=== PATIENT | female | born 1980 | race African-American/Black ===

== ENCOUNTER 2018-10-15 15:30 | Inpatient (IN) | payer OTHER ==
[~2018-10-15] VITALS: Ht 177.8 cm; Wt 78.7 kg
[2018-10-15] VITALS (22 sets, daily range): BP systolic 90–164; BP diastolic 51–123
--- NOTE | ~2018-10-15 | HC ---
[facility] [place] [address] CONSULTATION Name: DEBBIE DE LEON Room #: 244-P ADM IN M.R.#: [id number] Admission: 10/15/18 ������������������ Attend Phys: Otoniel Pate MD Discharge: ������������������ Date of : 80 Report #: [id number] THIS REPORT FOR: //name// CC: Otoniel OSORIO [facility] DATE OF SERVICE: 10/16/2018 REASON FOR CONSULTATION: Oliguria and acute kidney injury. HISTORY OF PRESENT ILLNESS: This is a 38-year-old female who presented yesterday to the Emergency Room with cardiorespiratory arrest. She is in the ICU, on the ventilator, paralyzed and sedated pharmacologically. The history is obtained through the nursing staff as well as the records available in the computer. Apparently, she presented elsewhere yesterday and was noted to be complaining of having an asthma attack. EMS was called and she had a cardiorespiratory arrest. She underwent resuscitation. She was brought to the Emergency Room, where resuscitation was continued. She was admitted to the Intensive Care Unit about 27 hours ago. Since that time, she has remained on the ventilator with very difficult ventilatory parameters. She has continued to have severe respiratory acidosis with hypercapnia. She was running high airway pressures. I would note, she does have a history of asthma. She has also been hypoxemic at times. Upon original presentation through the Emergency Room, she was hypotensive with pressures showing as low as 70/30. She was resuscitated and put on pressors and ended up hypertensive with several pressures recorded in the 170/120 range. Those were backed off. She got some IV fluids. Upon admission to the ICU, she was started on pharmacologic paralysis with cisatracurium. She has also been on some propofol. She has been given steroids, broad-spectrum antibiotics including aztreonam, levofloxacin and vancomycin. She has been on some IV fluids, part of which includes some half normal saline with 50 mEq of sodium bicarbonate. We were consulted as her urine output was low. Her intake and output was recorded as about 4.2 liters in and 725 mL out during the first 12 hours of hospitalization. In talking with the nurse, she has had another 700 some mL out today, so she was never frankly oliguric. Several hours ago, she was given 60 mg of furosemide IV. She has put nearly a liter out since that time. Labs will all be reviewed below. Additionally, she was started on hypothermia protocol, but respiratory parameters worsened, so that was stopped. She has been started on anti-seizure medication. Neurologically, she is still triggering the vent, but has been kept sedated and pharmacologically paralyzed, so we are unaware of other extent of neurologic injury. PAST MEDICAL HISTORY: Known for asthma. I do not have much else on that. There has been some drug uses. Apparently, she was positive for both cocaine and methamphetamine on arrival. No other medications are listed. Unknown if [address] [address] CONSULTATION Name: DEBBIE DE LEON Room #: 244-P ADM IN M.R.#: [id number] Admission: 10/15/18 ������������������ Attend Phys: Otoniel Pate MD Discharge: ������������������ Date of : 80 Report #: [id number] she has had any chronic illnesses otherwise. FAMILY HISTORY: Unavailable. SOCIAL HISTORY: The patient is single, lives in [place], [place]. REVIEW OF SYSTEMS: Unavailable. PHYSICAL EXAMINATION: GENERAL: A 38-year-old female seen in the Intensive Care Unit. She is sedated. She is on the ventilator. Pupils appear to be about 3 mm at this time. Sclerae nonicteric. She is orally intubated. NECK: Shows no JVD. Neck is supple. CHEST: Shows some rhonchi, particularly anteriorly and posteriorly. Her chest and breath sounds are very coarse with poor air movement. HEART: Has a regular tachycardia. No gallop. ABDOMEN: Has absent bowel sounds. Abdomen is soft, nondistended. I am unable to palpate organomegaly or masses. EXTREMITIES: Show no peripheral edema. All four extremities are cool to the touch. I cannot palpate peripheral pulses at this time. IMAGING: I reviewed her original chest x-ray which is fairly clear. Today's chest x-ray was much more dense. I reviewed her CT scan done of the chest, which shows extensive atelectasis and some evidence of posterior effusion. There is a brief view of her kidneys on that CT of the chest, which showed no hydronephrosis. Echocardiogram was done today, which apparently showed a 25% ejection fraction. LABORATORY DATA: From original presentation, sodium 145, potassium 4.9, chloride 106, bicarb 18, BUN 17, creatinine 1.6, glucose 433, AST is 447, ALT is 496, alkaline phosphatase 204, calcium 8.9, phosphorus 8.5, magnesium 3.5, total protein 5.7, albumin 2.3. A CK-MB was drawn, which was 6.1, no total CPKs has been drawn. Presenting white count 7.7; hemoglobin 10.5; hematocrit 36.2; platelets 145,000. Urinalysis, specific gravity greater than 1.030, pH 6.0, 3+ protein, 2+ glucose, 3+ blood, 16-25 white cells, 3-10 red cells, some bacteria, some hyaline casts. Original presentation of blood gas was pH 6.72, pCO2 of 98.6, pO2 of 445. Since that time, she has continued to be very acidotic. Most recent blood gas showed the most improvement with a pH of 7.134, pCO2 of 51.6 and pO2 of 73.6. Also, by this afternoon, on her serum chemistry, sodium 143, potassium 4.6, chloride 110, bicarbonate 19, BUN 37, creatinine 2.0, glucose down to 130, calcium 6.1, phosphorus has not been repeated nor have her liver function tests. ASSESSMENT: 1. The patient is now approximately 28-29 hours post-cardiorespiratory arrest. [facility] [address] [place] [address] CONSULTATION Name: DEBBIE DE LEON Room #: 244-P [facility] IN .R.#: [id number] Admission: 10/15/18 ������������������ Attend Phys: Otoniel Pate MD Discharge: ������������������ Date of : 80 Report #: [id number] History would suggest this started as a severe asthma episode. She presented with severe respiratory acidosis, hypercapnia and status asthmaticus. She was resuscitated in the Emergency Room. She was hypotensive, then hypertensive. She has been taken off the pressors. She has been given quite a bit of volume. She has held her blood pressure better today. She has changes on her echo suggesting acute cardiac dysfunction with a low ejection fraction. Neurologically, we are unable to determine her status because of her psychopharmacologic intervention, which was necessary for ventilation. 2. Severe respiratory failure with marked respiratory acidosis. Being managed by Pulmonary. She has trended somewhat better, although she still has significant hypercapnia and respiratory acidosis. 3. Acute kidney injury. Although she was never oliguric frankly, she did improve urine output with some furosemide. Creatinine level nancy. I am uncertain whether her creatinine was 1.5 on original presentation. I am uncertain if she has actually had some muscle injury causing an elevated creatinine production or if she has some underlying chronic kidney disease. There was no history available to suggest that. Nevertheless, her creatinine level has gone up. Her admitting phosphorus was exceedingly high, which could have been acute shift related to her arrest and her acidosis, but it makes me concerned about potential for additional muscle injury. We will check a CPK. Nevertheless, her urine output is improving at this time. We will continue to follow along with that. Potassium has held okay. We need to recheck the phosphorus again. She is on a bit of bicarbonate infusion and her metabolic acidosis parameters are actually improving with decreasing anion gap. 4. Severe combined respiratory and metabolic acidosis noted above. 5. Continues on broad-spectrum antibiotics. 6. She will be evaluated going forward for additional evidence of hypoxic brain injury. 7. We need to recheck liver enzymes as she is certainly is set to have shock liver on top of everything else. PLAN: 1. Continue hemodynamic support. 2. Pulmonary will continue to manage her respiratory status and work towards improvement in her hypercapnia and respiratory acidosis. 3. Continue IV fluids. She is currently on about a total of 200 some mL an hour and a urine output now looks like it is adequate. She can get p.r.n. furosemide. 4. Recheck phosphorus and CPK. 5. Recheck hepatic enzymes in the morning. 6. We will follow along closely in the care of this critically ill patient. ��������������������������������������������� ���������������������������������������� By: ��������������������������������������������� 22 1017 Franck Burgos MD /nt
--- NOTE | ~2018-10-15 | EEG ---
[facility] [address] [place] [address] ELECTROENCEPHALOGRAM Name: DEBBIE DE LEON Room #: 244-P ADM IN M.R.#: [id number] ������������������ Admission: 10/15/18 ������������������ Attend Phys: Otoniel Pate MD Discharge: ������������������ Date of : 80 Report #: [id number] ����������������������������������������������������������������� [id number] THIS REPORT FOR: //name// CC: Otoniel Pate NO PCP DATE OF SERVICE: 10/17/2018 This patient is post-code. EEG was done by placing the electrodes by standard 10-20 system of electrode placement. Both referential and sequential montages were used for recording. The recording was started at 7 microvolts and in that sensitivity, there is no cortical activity noticed. At the sensitivity of 5, no cortical activity appeared to be present, but there is some artifact and therefore, cortical activity cannot be fully excluded. Photic stimulation was unremarkable. IMPRESSION: This is a severely abnormal electroencephalogram consistent with hypoxic encephalopathy. There is no cortical activity present at the usual sensitivity of 7 microvolts; however, at 2 microvolts, background artifact is present and it becomes very difficult to fully exclude very low voltage activity, although it looks artifact. If brain is being considered in this patient, this patient will need either strong clinical correlation or evaluation with imaging study like brain flow study because artifact at 2 microvolts prevented confirming the finding on the basis of this electroencephalogram. ���������������������������������������� ���������������������������������������� By: ��������������������������������������������� 1827 1844 Aren Lima MD /nt
--- NOTE | 2018-10-15 15:34 | NUR ---
SEE CODE SHEET.
--- NOTE | 2018-10-15 15:38 | NUR ---
EMS REPORTS 7.0 ET 21 AT THE TEETH. 500 R 16 100% 5 PEEP
--- NOTE | 2018-10-15 15:41 | NUR ---
GLUCOSE 387
[2018-10-15 16:16] LABS: BE(vivo) -24.4 mmol/L (-2 to +3); HCO3 11.7 mmol/L (22.0-26.0); PCO2 92.6 mmHg (35.0-45.0); PO2 441.5 mmHg (80.0-100.0); sO2 99.5 % (92.0-98.0)
[2018-10-15 16:17] LABS: HEMATOCRIT 36.2 % (37.0-47.0); HEMOGLOBIN 10.5 gm/dL (12.0-15.0); MCH 22.4 pg (26.0-34.0); PLATELET COUNT 145 thou/uL (150-400); RBC 4.71 mil/uL (4.20-5.00); RDW 16.6 % (10.5-14.5); WBC 7.7 thou/uL (4.0-11.0)
[2018-10-15 16:25] LABS: ANION GAP 21 mmol/L (7-16); BUN 17 mg/dL (7-18); CALCIUM 8.9 mg/dL (8.5-10.1); CHLORIDE 106 mmol/L (98-107); CO2 18 mmol/L (21-32); CREATININE 1.6 mg/dL (0.6-1.0); GLUCOSE 433 mg/dL (74-106); POTASSIUM 4.9 mmol/L (3.5-5.1); SODIUM 145 mmol/L (136-145)
[2018-10-15 16:34] LABS: TROPONIN-I <0.06 ng/mL (<0.06)
[2018-10-15 16:46] LABS: ABSOLUTE NEUTROPHILS 1.3 thou/uL (1.4-8.2)
[2018-10-15 16:47] LABS: ANISOCYTOSIS 1+; HYPOCHROMASIA SLIGHT; MICROCYTES 1+; POLYCHROMASIA OCCASIONAL
--- NOTE | 2018-10-15 17:05 | NUR ---
PD CALLED WITH POSSIBLE FAMILY AFFILIATIONS FROM HER RECORD SAMRA DE LEON [phone] OR ISSAC DE LEON [phone]
[2018-10-15 17:14] LABS: APTT 35.7 Seconds (24.5-32.8); INR 1.1
[2018-10-15 17:35] LABS: FIBRINOGEN 202.3 mg/dL (210-360)
[2018-10-15 17:41] LABS: BE(vivo) -14.5 mmol/L (-2 to +3); HCO3 17.7 mmol/L (22.0-26.0); sO2 99.7 % (92.0-98.0)
[2018-10-15 17:42] LABS: PCO2 72.4 mmHg (35.0-45.0); pH 7.005 (7.360-7.450)
[2018-10-15 17:43] LABS: D-DIMER 8.09 ug/mLFEU (0.19-0.50)
--- NOTE | 2018-10-15 18:24 | NUR ---
VAT CONSULTED FOR A CL FOR THIS PT S/P CODE. A 5FRTLPICC TO RT IJ PER HOSP P&P PLEASE SEE INSERTION FOR DETAILS
[2018-10-15 18:56] LABS: AMP/METHAMP POSITIVE (Negative); BARBITURATES Negative (Negative); BENZODIAZEPINES Negative (Negative); COCAINE POSITIVE (Negative); METHADONE Negative (Negative); OPIATES Negative (Negative); PCP Negative (Negative)
[2018-10-15 20:12] LABS: BE(vivo) -15.7 mmol/L (-2 to +3); HCO3 17.6 mmol/L (22.0-26.0); PO2 68.8 mmHg (80.0-100.0); sO2 80.3 % (92.0-98.0)
[2018-10-15 20:13] LABS: PCO2 80.3 mmHg (35.0-45.0); pH 6.959 (7.360-7.450)
[2018-10-15 21:06] LABS: MAGNESIUM 3.5 mg/dL (1.8-2.4); PHOSPHORUS 8.5 mg/dL (2.5-4.9)
[2018-10-15 21:08] LABS: ALBUMIN 2.3 g/dL (3.4-5.0); CREATININE 1.5 mg/dL (0.6-1.0); POTASSIUM 4.6 mmol/L (3.5-5.1); TOTAL BILIRUBIN 0.2 mg/dL (<0.1-1.0); TOTAL PROTEIN 5.7 g/dL (6.4-8.2); TROPONIN-I 0.22 ng/mL (<0.06)
[2018-10-15 21:11] LABS: CALCIUM 6.6 mg/dL (8.5-10.1)
[2018-10-15 21:21] LABS: BE(vivo) -15.7 mmol/L (-2 to +3); HCO3 17.3 mmol/L (22.0-26.0); PO2 69.8 mmHg (80.0-100.0); pH 6.982 (7.360-7.450); sO2 82.1 % (92.0-98.0)
[2018-10-15 22:44] LABS: BE(vivo) -13.3 mmol/L (-2 to +3); HCO3 18.4 mmol/L (22.0-26.0); PCO2 68.3 mmHg (35.0-45.0); PO2 63.4 mmHg (80.0-100.0); sO2 80.7 % (92.0-98.0)
[2018-10-15 22:45] LABS: pH 7.048 (7.360-7.450)
[2018-10-15 22:45] LABS: URINE BILIRUBIN NEGATIVE (Negative); URINE BLOOD 3+ (Negative); URINE CLARITY CLOUDY; URINE COLOR YELLOW; URINE GLUCOSE-RANDOM* 2+ (Negative); URINE KETONES NEGATIVE (Negative); URINE LEUKOCYTES-REFLEX NEGATIVE (Negative); URINE NITRITE-REFLEX NEGATIVE (Negative); URINE PROTEIN (DIPSTICK) 3+ (Negative); URINE SPECIFIC GRAVITY >= 1.030 (1.005-1.035)
[2018-10-15 23:19] LABS: AMORPHOUS URATES Few /LPF (None Seen); HYALINE CASTS 0-3 Few /LPF (None Seen); MUCUS 4-6 Moderate strn/LPF (None Seen); SQUAMOUS 0-3 Few /LPF (0-3); URINE RBC 3-10 Few /HPF (0-2)
[2018-10-16] VITALS (43 sets, daily range): BP systolic 96–157; BP diastolic 66–116
[2018-10-16 01:08] LABS: BE(vivo) -12.6 mmol/L (-2 to +3); HCO3 18.2 mmol/L (22.0-26.0); PCO2 61.7 mmHg (35.0-45.0); PO2 73.1 mmHg (80.0-100.0); pH 7.087 (7.360-7.450); sO2 87.9 % (92.0-98.0)
--- NOTE | 2018-10-16 03:54 | NUR ---
PT ARRIVED ON UNIT AT APROX 1900. GCS 3. DOES NOT OPEN EYES, NONVERBAL, NO MOTOR RESPONSE. GAG REFLEX ABSENT. PUPILS FIXED. SEDATED WITH PROPOFOL. NIMBEX GTT. TOF 2/4. HYPOTHERMIA PROTOCOL ORDERED. PT COOLED FROM 1379-8121. DURING COOLING, DIFFICULTY MAINTAINING O2 SAT > 85%. A RESULT, HYPOTHERMIA PROTOCOL DC BY DR. ANDERSEN AND REWARMING INITIATED. SEPSIS PROTOCOL ORDERED. SINUS TACH ON MONITOR. PT INTUBATED. VENT SETTING FOLLOWS: RATE 24, TV 400, PEEP 10, FIO2 100%. PT'S SPUTUM IS FROTHY AND BLOOD TINGED. SUCTION PRN. O2 SAT > 90% AT THIS TIME. OG TUBE TO PLACE, SET TO LIS. YELENA TO DD. VITAL SIGNS AND ASSESSMENTS DOCUMENTED. WILL CONTINUE TO MONITOR.
[2018-10-16 04:42] LABS: CALCIUM 7.2 mg/dL (8.5-10.1); CREATININE 1.6 mg/dL (0.6-1.0)
[2018-10-16 05:28] LABS: CALCIUM 7.1 mg/dL (8.5-10.1); CREATININE 1.5 mg/dL (0.6-1.0); POTASSIUM 4.2 mmol/L (3.5-5.1)
[2018-10-16 05:35] LABS: HEMATOCRIT 48.2 % (37.0-47.0); MCHC 30.1 g/dL (28.0-37.0); MCV 73.1 fL (80.0-100.0); PLATELET COUNT 212 thou/uL (150-400); RBC 6.59 mil/uL (4.20-5.00); RDW 17.3 % (10.5-14.5)
[2018-10-16 05:57] LABS: HEMOGLOBIN 14.5 gm/dL (12.0-15.0); WBC 23.2 thou/uL (4.0-11.0)
[2018-10-16 07:56] LABS: ABSOLUTE NEUTROPHILS 20.9 thou/uL (1.4-8.2); ANISOCYTOSIS 1+
[2018-10-16 08:41] LABS: BE(vivo) -12.3 mmol/L (-2 to +3); HCO3 17.5 mmol/L (22.0-26.0); PCO2 55.2 mmHg (35.0-45.0); PO2 128.1 mmHg (80.0-100.0); pH 7.118 (7.360-7.450); sO2 97.4 % (92.0-98.0)
--- NOTE | 2018-10-16 11:01 | 2DMMODE ---
[facility] [place] [address] 2 D/M-MODE ECHOCARDIOGRAM Name: DEBBIE DE LEON Room #: 244-P ADM IN M.R.#: [id number] ������������� Admission: 10/15/18 ������������� Attend Phys: Otoniel Pate MD Discharge: ��� ������������� ��� Date of : 80 Date of Service: 10/16/18 1100 �� Report #: [id number] �������� ��������������������������������������������[id number] THIS REPORT FOR: //name// APPROVED REPORT Study performed: 10/16/2018 09:15:14 EXAM: Comprehensive 2D, Doppler, and color-flow Echocardiogram Patient Location: ICU Room #: 244 Status: routine BSA: 1.94 HR: 126 bpm BP: 103/66 mmHg Rhythm: Tachycardia Other Information Study Quality: Technically Limited Indications S^P Cardiac 2D Dimensions IVC: 21.00 mm Volumes Left Atrial Volume (Systole) Single Plane 4CH: 56.19 mL Single Plane 2CH: 74.73 mL LA ESV Index: 40.00 mL/m2 Aortic Valve AoV Peak Aryan.: 0.81 m/s AO Peak Gr.: 2.65 mmHg LVOT Max P.58 mmHg LVOT Max V: 0.63 m/s Left Ventricle The left ventricle is normal size. There is global hypokinesis of the left ventricle. There is normal left ventricular wall thickness. Left ventricular ejection fraction is severely decreased. LVEF is 15-20%. This study is not technically sufficient to allow evaluation of the LV diastolic function. Right Ventricle The right ventricle is normal size. The right ventricular systolic function is normal. [facility] [address] [place] [address] 2 D/M-MODE ECHOCARDIOGRAM Name: DEBBIE DE LEON Room #: 244-P [facility] IN M.R.#: [id number] ������������� Admission: 10/15/18 ������������� Attend Phys: Otoniel Ptae MD Discharge: ��� ������������� ��� Date of : 80 Date of Service: 10/16/18 1100 �� Report #: [id number] �������� ��������������������������������������������[id number] Atria Left atrium is dilated. The right atrium size is normal. Aortic Valve The aortic valve is normal in structure. No aortic regurgitation is present. There is no aortic valvular stenosis. Mitral Valve The mitral valve is normal in structure. Moderate mitral regurgitation. No evidence of mitral valve stenosis. Tricuspid Valve The tricuspid valve is normal in structure. There is no tricuspid valve regurgitation noted. Pulmonic Valve Pulmonic valve is not well visualized. Great Vessels The aortic root is normal in size. The inferior vena cava is dilated with no inspiratory collapse. Pericardium There is no pericardial effusion. <Conclusion> The left ventricle is normal size. LVEF is 15-20%. There is global hypokinesis of the left ventricle. Left atrium is dilated. The aortic valve is normal in structure. The mitral valve is normal in structure. Moderate mitral regurgitation. The tricuspid valve is normal in structure. Pulmonic valve is not well visualized. There is no pericardial effusion. ��������������������������������������������� <ELECTRONICALLY SIGNED> ���������������������������������������� By: Andrew West MD ��������������������������������������������� 10/16/18 1100 1100 1100 Andrew West MD /INF
--- NOTE | 2018-10-16 13:30 | NUR ---
Pt is sedated with Propofol inufsion at 30 mcg/kg/min. Nimbex was shut off per order from Dr Butts but resumed due to increased respirtatory rate to 40 and increasing peak airway pressures to upper 30's. Pt placed on transport monitor now for transport to radiology for CT scan of chest. Transport team includes RT, Otoniel and resource RN, Usha López.
[2018-10-16 15:38] LABS: BE(vivo) -12.3 mmol/L (-2 to +3); HCO3 16.9 mmol/L (22.0-26.0); PCO2 51.6 mmHg (35.0-45.0); PO2 73.6 mmHg (80.0-100.0); pH 7.134 (7.360-7.450); sO2 89.7 % (92.0-98.0)
[2018-10-16 15:44] LABS: CALCIUM 6.1 mg/dL (8.5-10.1); POTASSIUM 4.6 mmol/L (3.5-5.1)
--- NOTE | 2018-10-16 16:09 | EKG ---
[address] [place] [address] ELECTROCARDIOGRAM REPORT Name: DEBBIE DE LEON Room #: 244-P ADM IN M.R.#: [id number] ������������������ Admission: 10/15/18 ������������������ Attend Phys: Otoniel Pate MD Discharge: ������������������ Date of : 80 Report #: [id number] ����������������������������������������������������������������� [id number] THIS REPORT FOR: //name// [facility] ED Test Date: 2018-10-15 Test Time: 15:39:21 Pat Name: DEBBIE DE LEON Department: Room: 244 Gender: F [employer]: MY : 1980 Requested By: Melo Tomas Order Number: [id number] MD: Osei Justin Measurements Intervals [place] Rate: 102 P: 10 LA: 136 QRS: 38 QRSD: 88 T: -83 QT: 330 QTc: 430 Interpretive Statements Sinus tachycardia Nonspecific ST segment–T-wave abnormalities No previous ECG available for comparison Electronically Signed On 10-16-2018 16:09:12 CDT by Osei Justin [email or web address] ��������������������������������������������� <ELECTRONICALLY SIGNED> ���������������������������������������� By: Osei Justin MD ��������������������������������������������� 10/16/18 1609 1539 1539 Osei Justin MD /GISELLE
--- NOTE | 2018-10-16 17:46 | NUR ---
CALLED BACK,INFORMED OF CONSULT. WILL BE IN TO SEE PT. PT MED W MORPHINE FOR ? PAIN/GENERAL DISCOMFORT. PT RR 40'S, STACKING BREATHS,MAINTAINING SAT, VOLUME NOT CONSTATNT. FILTER CHANGED, ETS FOR SCANT AMT THICK BLOODY BACK.RT CALLED TO [place].--VW
--- NOTE | 2018-10-16 18:00 | NUR ---
Dr Banks from Anesthesia dept placed right radial arterial line. Pt remains sedated with Propofol at 30 mcg/kg/min and Paralytic (Nimbex) infusing at low dose to control respiratory rate and elevated airway pressures. Pt's parents, son and multiple family members have been present today. Pt's mother expressing wish to limit non-family visitors and have those individuals check with her before being allowwed to see patient. Dr Butts has been notified of ABG results and renal consult was obtained and called in to office. Pt maintaned in normothermic with Artic sun. Skin monitored under cooling device pads. Nasal swab results pending.
--- NOTE | 2018-10-16 19:05 | NUR ---
PT'S OLDER SISTER OUT OF STATE CALLED,SPOKE TO PT OVER PHONE (WORDS OF ENC).--VW
[2018-10-16 20:27] LABS: BE(vivo) -12.9 mmol/L (-2 to +3); HCO3 16.8 mmol/L (22.0-26.0); PCO2 53.9 mmHg (35.0-45.0); PO2 95.8 mmHg (80.0-100.0); sO2 94.6 % (92.0-98.0)
[2018-10-16 20:28] LABS: pH 7.112 (7.360-7.450)
--- NOTE | 2018-10-16 20:37 | HC ---
[facility] [place] [address] CONSULTATION Name: DEBBIE DE LEON Room #: 244-P ADM IN M.R.#: [id number] Admission: 10/15/18 ������������������ Attend Phys: Otoniel Pate MD Discharge: ������������������ Date of : 80 Report #: [id number] THIS REPORT FOR: //name// CC: Otoniel OSORIO PCP DATE OF SERVICE: 10/16/2018 INFECTIOUS DISEASE CONSULTATION REASON FOR CONSULTATION: Evaluate fever, pulmonary infiltrate, status asthmaticus, respiratory failure following cardiac arrest. HISTORY OF PRESENT ILLNESS: The patient is a 38-year-old who has underlying history of asthma, was in the Emergency Room several days ago, but walked out AMA. Then, this morning, when was at [facility] complaining of asthma attack. She became unresponsive. EMS was called, found to be pulseless, diagnosed PEA. Given epinephrine, D50, intubated and transported to [facility]. She has had temperature over 38 degrees. Blood pressure stabilized. Attempts at cooling the patient did not work. She became more unstable. She was markedly acidotic, had mild elevation in her troponin. Echocardiogram shows marked global decrease in ejection fraction. No gross aspiration was identified. Minimal tracheal secretions. Basilar infiltrates on chest x-ray. No hemoptysis. Has eosinophilia that was most consistent with her diagnosis of asthma. Unknown what her asthmatic medications were as an outpatient. Nursing states that they think she had been treated at [facility] previously. She was found to have cocaine and methamphetamines on her drug screen. No reported injury. No reported nausea, vomiting or diarrhea. No new rashes or other injury noted. REVIEW OF SYSTEMS: Unable to obtain 10-point review of systems due to patient's mental status. ALLERGIES: PENICILLIN. PAST MEDICAL HISTORY: Asthma. FAMILY HISTORY: Not available. SOCIAL HISTORY: Not available. MEDICATIONS: As noted on her MAR, which were reviewed. Currently on vancomycin and aztreonam. PHYSICAL EXAMINATION: VITAL SIGNS: Temperature is 37.9, pulse 104, blood pressure 139/99, she was [facility] [address] [place] [address] CONSULTATION Name: DEBBIE DE LEON Room #: 244-P [facility] IN M.R.#: [id number] Admission: 10/15/18 ������������������ Attend Phys: Otoniel Pate MD Discharge: ������������������ Date of : 80 Report #: [id number] intubated on the ventilator, 100% FiO2. SKIN: With multiple tattoos. No rashes or lesions noted. No palpable adenopathy. HEENT: Eyes, without scleral icterus. Mouth without mucositis. Orally intubated. OG tube in place. NECK: Supple. LUNGS: Decreased breath sounds bilaterally. No adventitious sounds. HEART: Tachycardic and regular. ABDOMEN: Soft, no masses or hepatosplenomegaly. GENITOURINARY: External genitalia unremarkable with indwelling Darling catheter. EXTREMITIES: Without clubbing, cyanosis or edema. NEUROLOGIC: She was on paralytics and sedation, unable to do further neurologic examination or psychiatric examination. LABORATORY STUDIES: Sodium 146, potassium 4.2, bicarbonate 19, creatinine 1.5, AST 447, ALT 496, alkaline phosphatase 204, bilirubin 0.2, albumin at 2.3, lactate 5.2, CPK 6.1. Troponin 0.22. BNP 357. INR 1.1. Fibrinogen 202. D-dimer 8. Drug screen positive methamphetamines and cocaine. Hemoglobin 14.5, WBC 23.2, platelet count 212,000. Differential, 84% segs, 6% bands. Beta hCG negative. HIV nonreactive. Procalcitonin 4.2. Urinalysis, moderate pyuria, bacteriuria. ABG on 100% FIO2 showed pO2 of 127, pCO2 of 55, pH 7.1. Blood, urine and sputum cultures pending. CT head, diffuse sulcal effacement. Chest x-ray, bilateral lower lobe atelectasis, infiltrates and pleural effusion. IMPRESSION: A 38-year-old with, 1. Out of hospital cardiopulmonary arrest with status asthmaticus. 2. Multisystem failure related to her initial ischemic event and code, has encephalopathy with CT scan changes to her brain, shock liver, stunned myocardium, acute kidney injury and respiratory failure. 3. Recreational drug use. 4. Suspected aspiration pneumonitis versus community-acquired pneumonitis. RECOMMENDATION: We will obtain cultures, antigens and broad antibiotic coverage. THE PATIENT IS ALLERGIC TO PENICILLIN and will stick with vancomycin, aztreonam, Levaquin, pending further information from family. Continue full ICU support and resuscitative measures. I have discussed in detail with respiratory therapy and nursing at the bedside. ��������������������������������������������� <ELECTRONICALLY SIGNED> ���������������������������������������� By: Austyn Villeda MD ��������������������������������������������� 10/16/182036 16 12 Austyn Villeda MD /nt
[2018-10-16 20:41] LABS: PHOSPHORUS 7.1 mg/dL (2.5-4.9)
[2018-10-16 23:01] LABS: CREATININE 2.2 mg/dL (0.6-1.0); POTASSIUM 4.8 mmol/L (3.5-5.1)
[2018-10-16 23:03] LABS: CALCIUM 5.7 mg/dL (8.5-10.1)
[2018-10-16 23:04] LABS: BE(vivo) -10.8 mmol/L (-2 to +3); HCO3 19.3 mmol/L (22.0-26.0); PCO2 61.4 mmHg (35.0-45.0); sO2 94.1 % (92.0-98.0)
[2018-10-16 23:05] LABS: pH 7.116 (7.360-7.450)
[2018-10-17] VITALS (16 sets, daily range): BP systolic 75–148; BP diastolic 43–103
[2018-10-17 04:17] LABS: BE(vivo) -12.7 mmol/L (-2 to +3); HCO3 17.5 mmol/L (22.0-26.0); PCO2 58.5 mmHg (35.0-45.0); PO2 71.6 mmHg (80.0-100.0); sO2 87.5 % (92.0-98.0)
[2018-10-17 04:18] LABS: pH 7.093 (7.360-7.450)
[2018-10-17 04:41] LABS: ABSOLUTE NEUTROPHILS 11.6 thou/uL (1.4-8.2); BASOPHILS 0.2 % (0.0-2.0); EOSINOPHILS 0.3 % (0.0-3.0); HEMATOCRIT 40.9 % (37.0-47.0); HEMOGLOBIN 12.7 gm/dL (12.0-15.0); LYMPHOCYTES 12.6 % (24.0-44.0); MCV 70.9 fL (80.0-100.0); MONOCYTES 8.6 % (1.0-8.0); PLATELET COUNT 145 thou/uL (150-400); POLYS 78.3 % (36.0-66.0); RBC 5.77 mil/uL (4.20-5.00); RDW 16.9 % (10.5-14.5); WBC 14.9 thou/uL (4.0-11.0)
[2018-10-17 04:58] LABS: ALBUMIN 2.1 g/dL (3.4-5.0); ANION GAP 12 mmol/L (7-16); BUN 41 mg/dL (7-18); CALCIUM 5.6 mg/dL (8.5-10.1); CHLORIDE 108 mmol/L (98-107); CO2 21 mmol/L (21-32); CREATININE 2.6 mg/dL (0.6-1.0); DIRECT BILIRUBIN < 0.1 mg/dL (<0.1-0.3); GLUCOSE 137 mg/dL (74-106); SGOT 246 U/L (15-37); SGPT 271 U/L (30-65); SODIUM 141 mmol/L (136-145); TOTAL BILIRUBIN 0.2 mg/dL (<0.1-1.0); TOTAL PROTEIN 5.8 g/dL (6.4-8.2)
[2018-10-17 04:59] LABS: POTASSIUM 5.5 mmol/L (3.5-5.1)
--- NOTE | 2018-10-17 06:22 | NUR ---
GCS 3. UNRESPONSIVE. DOES NOT OPEN EYES, PUPILS FIXED. NO MOVEMENT, DOES NOT RESPOND TO PAINFUL STIMULI. COUGH & GAG REFLEXES ABSENT. SEDATION WITH PROPOFOL. NIMBEX GTT. MAINTAINING NORMOTHERMIA USING ARCTIC SUN. SINUS TACH ON MONITOR. PT BECAME HYPOTENSIVE AT APROX AT 0400. LEVOPHED GTT INITIATED. VENT SETTINGS UNCHANGED. PT REMAINS ACIDOTIC. SMALL VOLUME CLEAR, THIN SPUTUM. IF NIMBEX TITRATED TOO LOW, PT BECOMES TACHYPNEIC AND PEAK AIRWAY PRESSURE INCREASES. OG TUBE TO LIS. KIRK TO DD. ADEQUATE URINE OUTPUT THIS SHIFT. VITAL SIGNS AND ASSESSMENTS DOCUMENTED. WILL CONTINUE TO MONITOR.
[2018-10-17 07:07] LABS: HBsAG-EMPLOYEE EXPOSURE Negative (Negative); HCV AB-EMPLOYEE EXPOSURE 0.2 (0.0-0.9)
[2018-10-17 08:08] LABS: HEMATOCRIT 39.9 % (37.0-47.0); HEMOGLOBIN 12.4 gm/dL (12.0-15.0); MCV 70.9 fL (80.0-100.0); RBC 5.63 mil/uL (4.20-5.00); RDW 16.7 % (10.5-14.5); WBC 14.1 thou/uL (4.0-11.0)
[2018-10-17 08:13] LABS: CREATININE 2.7 mg/dL (0.6-1.0); POTASSIUM 4.7 mmol/L (3.5-5.1)
[2018-10-17 08:20] LABS: CALCIUM 5.8 mg/dL (8.5-10.1)
[2018-10-17 09:05] LABS: BE(vivo) -6.4 mmol/L (-2 to +3); HCO3 20.7 mmol/L (22.0-26.0); PCO2 47.7 mmHg (35.0-45.0); PO2 94.6 mmHg (80.0-100.0); sO2 96.1 % (92.0-98.0)
[2018-10-17 09:06] LABS: pH 7.256 (7.360-7.450)
--- NOTE | 2018-10-17 10:38 | NUR ---
If going to start nutrition support, recommend vital AF 1.2 at goal of 60ml/hr. If renal function worsens, then could use nepro at 40ml/hr. Defer any fluid needs to renal.
--- NOTE | 2018-10-17 10:58 | NUR ---
INITIAL ASSESSMENT: SW reviewed chart and spoke with nursing and attending physician. Pt was admitted after being found unresponsive at [facility]. Pt was coded twice. Pt currently intubated and sedated. No family present at bedside. Neuro to be consulted per nursing. Per chart, pt with hx of asthma. Pt's drug screen was postive for meth and cocaine. farm planner faxed face sheet to [facility]. SW to follow up with pt/family at a later time and assist as needed with discharge planning.
[2018-10-17 13:39] LABS: BE(vivo) -5.5 mmol/L (-2 to +3); HCO3 19.5 mmol/L (22.0-26.0); PCO2 36.7 mmHg (35.0-45.0); PO2 137.1 mmHg (80.0-100.0); pH 7.344 (7.360-7.450); sO2 98.6 % (92.0-98.0)
--- NOTE | 2018-10-17 15:09 | HC ---
[facility] [place] [address] CONSULTATION Name: DEBBIE DE LEON Room #: 244-P [facility] IN M.R.#: [id number] Admission: 10/15/18 ������������������ Attend Phys: Otoniel Pate MD Discharge: ������������������ Date of : 80 Report #: [id number] THIS REPORT FOR: //name// CC: Otoniel OSORIO PCP REFERRAL PHYSICIAN: Dr. Tomas. REASON FOR REFERRAL: Status asthmaticus, cardiac arrest. HISTORY OF PRESENT ILLNESS: The patient is a 38-year-old -M[place] female who was brought to the ED following a cardiac arrest. A pulmonary critical care consultation was requested. The patient apparently has a history of asthma. She was seen in the ER a few days ago here, but walked out AMA without being seen. Earlier today, she was at [facility]. She was described by the witness that she had an asthmatic attack. She then had nonpurposeful extremity movements, then subsequently proceeded to be unresponsive. She was found to be pulseless. EMS was called. The patient was intubated in the parking lot of [facility]. According to EMS, she arrested the second time. She became pulseless along with PEA. She was given 3 rounds of epinephrine en route to along with an amp of D50. Glucose level was 53 at the field. Initial CO2 was measured at 58. The patient remained unresponsive. She is intubated. She is difficult to ventilate. Ketamine was given with some improvement and ability to ventilate following intubation. Otherwise, past medical history, past surgical history, allergies, medications, family history and social history are unknown. No family members present at this time. PHYSICAL EXAMINATION: GENERAL: She is unresponsive. She is intubated. VITAL SIGNS: Current pulse is 110 beats per minute, blood pressure was hypotensive, currently is 120/60 mmHg. Saturation 99%. HEENT: Normocephalic, atraumatic. She is orally intubated. NECK: Supple, without lymphadenopathy or thyromegaly. CHEST: Breath sounds are decreased bilaterally with moderate bilateral wheezes. No rales. CARDIOVASCULAR: Heart sounds are distant. No obvious murmurs or gallop. Pulses are 2+/4+ bilaterally. BREASTS: Deferred. ABDOMEN: Soft, nontender, no organomegaly or masses felt. GENITOURINARY: Deferred. RECTAL: Deferred. EXTREMITIES: There is no edema, cyanosis or clubbing. NEUROLOGIC: The patient is not responsive. [facility] [address] [place] [address] CONSULTATION Name: DEBBIE DE LEON Room #: 244-P [facility] IN [facility]#: [id number] Admission: 10/15/18 ������������������ Attend Phys: Otoniel Pate MD Discharge: ������������������ Date of : 80 Report #: [id number] LABORATORY DATA: Portable chest x-ray shows hazy left-sided lung field, pulmonary vascular markings are mildly increased, cardiac silhouette is unremarkable. Otherwise, right lung rodrigues relatively clear compared to the left. ET tube is approximately 3 cm above the laquita. The initial arterial blood gas revealed pH 6.7, pCO2 of 92, pO2 of 441, FiO2 of 100%. Electrolytes, creatinine of 1.6. Sodium 145, potassium 4.9, chloride 106, CO2 is 18. WBC 7700, hemoglobin 10.5 and platelets are normal. 4% eosinophilia. Followup glucose is 430. IMPRESSION: 1. Status asthmaticus, status post intubation. 2. Acute hypercapnic respiratory failure due to above. 3. Cardiac arrest x 2. The patient arrested twice, duration unknown. Subsequent rhythm was felt to be pulseless electrical activity. The patient would benefit from hypothermia protocol. 4. Renal insufficiency, unknown whether the patient has chronic kidney disease versus acute kidney injury. 5. Respiratory and metabolic acidosis due to above processes. 6. Encephalopathy. Suspect profound hypoxic brain injury. 7. Elevated eosinophilia, will be consistent with a history of asthma, likely allergic component. RECOMMENDATION: The patient will benefit from paralytic agent given difficulty in ventilation. Short acting paralytic medication will be utilized. Cisatracurium will be initiated. Sedation will be also initiated with Diprivan with p.r.n. narcotics and benzodiazepine. Agree with corticosteroids and bronchodilators. Chest x-ray also suggests possible aspiration. Zosyn will be initiated. Check sputum for culture. We will follow up arterial blood gas. Follow up arterial blood gas regarding profound respiratory acidosis. Would also try to maintain adequate urine output given renal insufficiency along with metabolic acidosis. DVT and GI prophylaxis will be addressed. Eventually, she will need further neurologic evaluation if encephalopathy persist. Overall, prognosis guarded given the above events. Thank you for this consultation. Critical care 1 hour ��������������������������������������������� <ELECTRONICALLY SIGNED> ���������������������������������������� By: Jarvis Butts MD ��������������������������������������������� 10/17/18 [id number] Jarvis Butts MD /nt
--- NOTE | 2018-10-17 16:08 | NUR ---
PT IS NONRESPONSIVE PUPILS FIXED. NO RESPONSE AND OFF SEDATION CURRENTLY. REMAINS ON THE VENT. NO GAG REFLEX NOTED OR PAIN RESPONSE. NO OVERBREATHING OF THE VENT. SINUS TACHYCARDIA . ABDOMEN IS ROUND. BOWEL SOUNDS HYPOACTIVE. KIRK TO DD WITH YARED URINE PRESENT. BEAR HUGER ON PT DUE TO TEMPERATURE IS 96.8 AXILARY. FAMILY AT BEDSIDE FOR SUPPORT. NEURO SEEN PT THIS EVENING. WILL NEED MRI. SCDS ON BILATERAL WILL CONTINUE TO MONITOR AND ASSESS PER NURSING.
[2018-10-18] VITALS (17 sets, daily range): BP systolic 94–178; BP diastolic 52–115
--- NOTE | 2018-10-18 03:50 | NUR ---
[facility] CALLED FOR AN UPDATES ON PT'S CURRENT CONDITIONS AND REQUESTED US TO NOITIFY THEM IF PT CODE STATUS CHANGE OR WORSEN OF NEUROLOGICAL STATUS.
[2018-10-18 05:04] LABS: MCH 22.1 pg (26.0-34.0); MCHC 32.2 g/dL (28.0-37.0); MCV 68.5 fL (80.0-100.0); PLATELET COUNT 111 thou/uL (150-400); RBC 4.97 mil/uL (4.20-5.00); RDW 15.9 % (10.5-14.5); WBC 9.5 thou/uL (4.0-11.0)
[2018-10-18 05:10] LABS: CALCIUM 6.2 mg/dL (8.5-10.1); CREATININE 2.5 mg/dL (0.6-1.0); PHOSPHORUS 3.1 mg/dL (2.5-4.9)
[2018-10-18 05:14] LABS: POTASSIUM 3.3 mmol/L (3.5-5.1)
[2018-10-18 05:51] LABS: BE(vivo) 3.1 mmol/L (-2 to +3); HCO3 27.2 mmol/L (22.0-26.0); PCO2 40.1 mmHg (35.0-45.0); PO2 100.7 mmHg (80.0-100.0); sO2 97.8 % (92.0-98.0)
[2018-10-18 06:16] LABS: ABSOLUTE NEUTROPHILS 8.6 thou/uL (1.4-8.2); HYPOCHROMASIA 2+; LARGE PLATELETS OCCASIONAL; MICROCYTES 2+
--- NOTE | 2018-10-18 08:13 | NUR ---
Pt remains unresponsive in this shift. GCS3. Ansent of gag /coughing and corneal reflexes. No responsone to painful stimuli. No seizure activity notes in this shift. [facility] is following her case. Remains in ST,ABP and MAP are elevated this am. Notified [employer] corrosion control technician; Rec to continue to observe for now. Pt's mother visited last night. Report hand off to am shift RN.
--- NOTE | 2018-10-18 10:05 | NUR ---
Upon initial assessment pt's pupils noted to be unequal and nonreactive. The right pupil is larger than the left. Call placed to answering service of Neurologist (Dr. Crowley). Pt does have some movement of the upper extemities to nailbed pressure-refer to assessment.
--- NOTE | 2018-10-18 10:45 | NUR ---
Dr Pate came and met with patient's mother and few other family members. Discussed neurologic status. Family tearful. Pastoral care director paged to come and provide emotional support to the family.
--- NOTE | 2018-10-18 12:00 | NUR ---
Pt's father here to visit. Dr Pate paged and came back by to discuss status of the patient.
--- NOTE | 2018-10-18 16:00 | NUR ---
Dr Crowley here to see patient. Dr Crowley examined patient and then spoke wtih patients family-reviewed test results, clinical exam and prognosis.
--- NOTE | 2018-10-18 19:15 | NUR ---
Pupils remain unequal and nonreactive. Continues to have some movement of her hands with nailbed pressure. Also noted to have some tremor of the right arm with nailbed pressure. Pt does not follow any commands or show purposeful movement. No sedation today. Report given to RN assuming care.
[2018-10-19] VITALS (21 sets, daily range): BP systolic 88–108; BP diastolic 46–62
[2018-10-19 05:02] LABS: HEMATOCRIT 28.7 % (37.0-47.0); HEMOGLOBIN 9.1 gm/dL (12.0-15.0); MCH 22.3 pg (26.0-34.0); MCHC 31.9 g/dL (28.0-37.0); RBC 4.1 mil/uL (4.20-5.00); RDW 15.8 % (10.5-14.5); WBC 12.2 thou/uL (4.0-11.0)
[2018-10-19 05:14] LABS: ALBUMIN 1.9 g/dL (3.4-5.0); CALCIUM 7.1 mg/dL (8.5-10.1); CREATININE 2.4 mg/dL (0.6-1.0); PHOSPHORUS 3.4 mg/dL (2.5-4.9)
[2018-10-19 05:39] LABS: BE(vivo) 2.3 mmol/L (-2 to +3); PO2 86.6 mmHg (80.0-100.0); pH 7.325 (7.360-7.450); sO2 95.7 % (92.0-98.0)
--- NOTE | 2018-10-19 07:21 | NUR ---
END OF SHIFT SUMMARY: Pt remains unresponsive. Monitor sinus tach, heart rate 120's for most of shift however decreased to 110-116 around 0500. Pt at 65% FiO2 until 0345 when she dropped to 88% O2 sat and did not come back up even after suctioning. FiO2 titrated up to 85% and pt's O2 sat back up to 93%. Breath sounds had expiratory wheezing, especially left side during this time. Pt received hypertonic saline bolus at beginning of shift per order Dr. Crowley. Serum sodium this a.m. 161; Dr. Burgos (nephrology) notified, no new orders at this time. pH this a.m. 7.325, called to Dr. Butts, no new orders at this time. Urine output remains > 30 cc per hour. Skin integrity remains intact.
[2018-10-19 17:28] LABS: BE(vivo) 3.9 mmol/L (-2 to +3); PCO2 62.2 mmHg (35.0-45.0); PO2 102.9 mmHg (80.0-100.0); pH 7.316 (7.360-7.450); sO2 97.1 % (92.0-98.0)
--- NOTE | 2018-10-19 22:00 | NUR ---
I SPOKE WITH PTS MOTHER FAYE DE LEON. SHE DOES NOT WANT PT TO BE A FULL CODE SHE WANTS PT TO GO NATURALLY AND NO CPR. K RONI HAND UPPER AND BOTTOM LACER NOTIFIED. LEFT ORDERS FOR DNR. WILL CONT TO MONITOR.
--- NOTE | 2018-10-19 22:26 | NUR ---
Pupils unequal and nonreactive throughout shift. CT scan of head done this afternoon. Dr Crowley reviewed the result of the CT scan with one family member and made an attempt to contact pt's mother to discuss the findings. Pt code status was changed to DNR this morning per family request and then reversed back to full code per family request later this evening. Only response observed to nailbed pressure was flinch of thumb and fingers of right hand. No cough/gag. Vent rate was changed to [address] Butts. ABG was obtained on 100% and rate of [address] Butts. Pt requires minimal amt of suctioning. Total of five rings were removed from pt's swollen fingers today. Dispostion of rings discussed with [facility] guard Joselo Rigo. Rings were released to patient's mother, Meenu. Valuables card (x2) with description of rings was signed by pt's mother and placed on the front of the chart. Witness to release of rings by Karol Aleman RN..Report was given to Karol Aleman RN assuming care.
[2018-10-20] VITALS (22 sets, daily range): BP systolic 93–129; BP diastolic 49–72
[2018-10-20 05:41] LABS: BE(vivo) 1.8 mmol/L (-2 to +3); HCO3 29.1 mmol/L (22.0-26.0); PCO2 61.1 mmHg (35.0-45.0); sO2 95.7 % (92.0-98.0)
[2018-10-20 05:42] LABS: pH 7.296 (7.360-7.450)
[2018-10-20 05:52] LABS: HEMATOCRIT 27.8 % (37.0-47.0); HEMOGLOBIN 8.7 gm/dL (12.0-15.0); MCH 22.4 pg (26.0-34.0); MCHC 31.4 g/dL (28.0-37.0); MCV 71.3 fL (80.0-100.0); RBC 3.9 mil/uL (4.20-5.00); RDW 16.1 % (10.5-14.5); WBC 13.2 thou/uL (4.0-11.0)
--- NOTE | 2018-10-20 06:00 | NUR ---
REMAINS INTUBATED 100 % O2 AND NONRESPONSIVE TO PAINFUL NOR VERBAL STIMULI LUNGS COARSE RHONCHI BILAT. PT IS A DNR. PUPILS FIXED RIGHT 6 LEFT 5 NO NO COUGH GAG NOR CORNEAL REFLEX. AFEBRILE. SINUS RHYTHM TO SINUS TACH. WILL CONT TO MONITOR CLOSELY.
[2018-10-20 06:04] LABS: CALCIUM 7.2 mg/dL (8.5-10.1); CREATININE 2.2 mg/dL (0.6-1.0); PHOSPHORUS 3.4 mg/dL (2.5-4.9); POTASSIUM 4.2 mmol/L (3.5-5.1)
--- NOTE | 2018-10-20 18:37 | NUR ---
ASSUMED CARE @ 0700 10/20/18, PT ASSESSEMENTS AND VSS COMPLETE PER ICU PROTOCOL. PT NOT FOLLOWING COMMANDS, PT NEGATIVE FOR CORNEAL, GAG, COUGH REFLEX, PUPILS UNREACTIVE. PT ST ON THE MONITOR, EDEMA PRESENT, PLEASE SEE PROCESS INTERVENTION FOR SPECIFICS. PT ON THE VENT, SEE PROCESS INTERVENTIONS FOR VENT SETTINGS. OG IN PLACE TO LIS, BS STABLE NO INSULIN COVERAGE NEEDED. KIRK IN PLACE, GOP NOTED, FALL PRECAUTIONS IN PLACE. DR ANDERSEN, DR GE, DR PARKER, DR ROSARIO, AND DR PATRICK HERE TO SEE PATIENTS DURING THIS SHIFT, ORDERS PLACE AND FOLLOWED BY RN ACCORDINGLY. FAMILY HERE DURING SHIFT TO VISIT WITH, MOTHER OF PT TOLD RN THAT SHE MAY WITHDRAW CARE TOMORROW AND THAT SHE DOES NOT WANT ANY VISITORS TO SEE HER EXPECT PT'S SON, THIS WILL BE COMMUNICATED TO THE CREDIT INVESTIGATOR RN. PLAN OF CARE- CONT TO MONITOR
[2018-10-21] VITALS (17 sets, daily range): BP systolic 84–137; BP diastolic 41–77
--- NOTE | 2018-10-21 04:48 | NUR ---
[facility] CALLED FOR AN UPDATES ON PT'S STATUS.
[2018-10-21 05:43] LABS: HEMATOCRIT 31.6 % (37.0-47.0); HEMOGLOBIN 9.5 gm/dL (12.0-15.0); MCH 22.2 pg (26.0-34.0); MCHC 30.2 g/dL (28.0-37.0); MCV 73.4 fL (80.0-100.0); RBC 4.31 mil/uL (4.20-5.00); RDW 16.8 % (10.5-14.5); WBC 9.8 thou/uL (4.0-11.0)
[2018-10-21 05:53] LABS: BE(vivo) -0.2 mmol/L (-2 to +3); HCO3 30.4 mmol/L (22.0-26.0); PO2 65.5 mmHg (80.0-100.0)
[2018-10-21 05:54] LABS: PCO2 90.4 mmHg (35.0-45.0); pH 7.144 (7.360-7.450)
[2018-10-21 06:12] LABS: CALCIUM 8.1 mg/dL (8.5-10.1); CREATININE 2.1 mg/dL (0.6-1.0); POTASSIUM 4.4 mmol/L (3.5-5.1)
--- NOTE | 2018-10-21 06:17 | NUR ---
Pt remains unresponsive. GCS 3, no gag/cough or corneal reflexes. Continue to be on vent with no sedation. No seizure activity indicates. Continue to be on 100% FiO2 with PEEP of 10. High peak pressure indicates on vent. Her lung sound is very coarse/wheezes this am on Left side. ABG obtained, look worsen. Call result of ABG to , no new order at this time. Hypernatremis is worsen. Call result to GREEN MEAT GRADER. will notify Renal when they round this am. Continue supportive cares.
--- NOTE | 2018-10-21 06:45 | NUR ---
Pt became hypotensive. Start Levophed gtt ,will titrate to keep MAP > 65 mmHg.
--- NOTE | 2018-10-21 15:54 | NUR ---
SW reviewed chart and spoke with attending physician, who met with pt's family. Pt has been made a DNR and would like for pt to be a donor. [facility] contacted. SW is available to assist as needed.
[2018-10-21 16:55] LABS: FIBRINOGEN 530.8 mg/dL (210-360); INR 1.2; PROTIME 12.5 Seconds (9.3-11.4)
[2018-10-21 17:34] LABS: HEMOGLOBIN 8.8 gm/dL (12.0-15.0)
[2018-10-21 17:36] LABS: HEMATOCRIT 29.1 % (37.0-47.0); MCH 21.9 pg (26.0-34.0); MCHC 30.4 g/dL (28.0-37.0); MCV 72.1 fL (80.0-100.0); PLATELET COUNT 101 thou/uL (150-400); RBC 4.03 mil/uL (4.20-5.00); RDW 16.4 % (10.5-14.5); WBC 12.7 thou/uL (4.0-11.0)
[2018-10-21 17:50] LABS: AMYLASE 37 U/L (25-115)
[2018-10-21 17:58] LABS: DIRECT BILIRUBIN < 0.1 mg/dL (<0.1-0.3); GGTP 63 U/L (5-55); LIPASE 119 U/L (73-393); MAGNESIUM 2.9 mg/dL (1.8-2.4); PHOSPHORUS 3.4 mg/dL (2.5-4.9); SGOT 93 U/L (15-37); SGPT 62 U/L (30-65); TOTAL BILIRUBIN 0.1 mg/dL (<0.1-1.0)
[2018-10-21 18:03] LABS: ABSOLUTE NEUTROPHILS 10.9 thou/uL (1.4-8.2); ANISOCYTOSIS 1+; METAMYELOCYTES 7 %; MICROCYTES 1+; NUCLEATED RBCS 1 /100WBC
[2018-10-21 18:04] LABS: POLYCHROMASIA OCCASIONAL
--- NOTE | 2018-10-21 18:19 | NUR ---
NO RESPONSE TO PAINFUL STIMULI. PUPILS FIXED NO GAG REFLEX. ART LINE RIGHT WRIST. TRIPLE LUMEN JUGULAR LEFT NECK. FAMILY MET WITH [facility] AND WILL DETERMINE BRAIN ACTIVITY TOMORROW IF SODIUM IS WITHIN NORMAL RANGE. REMAINS UNSEDATED. KIRK TO DD IWTH CLOUDY YELLOW URINE OUTPUT. LEVEPHED AT 5.5MCG. TURNED Q2 HOURS. SCD'S ON.
[2018-10-21 21:05] LABS: CALCIUM 6.3 mg/dL (8.5-10.1); CREATININE 1.8 mg/dL (0.6-1.0)
[2018-10-21 21:06] LABS: POTASSIUM 3.6 mmol/L (3.5-5.1)
[2018-10-21 21:17] LABS: BE(vivo) 3.5 mmol/L (-2 to +3); HCO3 31.3 mmol/L (22.0-26.0); sO2 83.5 % (92.0-98.0)
[2018-10-21 21:18] LABS: PCO2 66.7 mmHg (35.0-45.0); PO2 54.4 mmHg (80.0-100.0); pH 7.289 (7.360-7.450)
[2018-10-22] VITALS (25 sets, daily range): BP systolic 103–122; BP diastolic 41–65
[2018-10-22 00:30] LABS: HEMATOCRIT 29.7 % (37.0-47.0); MCH 21.7 pg (26.0-34.0); MCHC 30.3 g/dL (28.0-37.0); MCV 71.8 fL (80.0-100.0); PLATELET COUNT 123 thou/uL (150-400); RBC 4.14 mil/uL (4.20-5.00); RDW 16.2 % (10.5-14.5); WBC 25.8 thou/uL (4.0-11.0)
[2018-10-22 00:45] LABS: APTT 41.4 Seconds (24.5-32.8); INR 1.2; PROTIME 12.7 Seconds (9.3-11.4)
[2018-10-22 00:50] LABS: URINE BILIRUBIN NEGATIVE (Negative); URINE BLOOD 2+ (Negative); URINE CLARITY CLEAR; URINE COLOR YELLOW; URINE GLUCOSE-RANDOM* NEGATIVE (Negative); URINE KETONES NEGATIVE (Negative); URINE LEUKOCYTES-REFLEX NEGATIVE (Negative); URINE NITRITE-REFLEX NEGATIVE (Negative); URINE PROTEIN (DIPSTICK) TRACE (Negative); URINE SPECIFIC GRAVITY <= 1.005 (1.005-1.035); URINE UROBILINOGEN 0.2 E.U./dl (0.2-1.0)
[2018-10-22 00:50] LABS: FIBRINOGEN 788.1 mg/dL (210-360)
[2018-10-22 01:01] LABS: BACTERIA-REFLEX 1-9 Few /HPF (None Seen); CASTS None Seen /LPF (None Seen); MUCUS 0-3 Light strn/LPF (None Seen); SQUAMOUS 0-3 Few /LPF (0-3); URINE RBC 3-10 Few /HPF (0-2); URINE WBC-REFLEX 0-5 Rare /HPF (0-5)
[2018-10-22 01:02] LABS: AMORPHOUS URATES Few /LPF (None Seen)
[2018-10-22 01:12] LABS: ALBUMIN 1.4 g/dL (3.4-5.0); AMYLASE 26 U/L (25-115); BUN 48 mg/dL (7-18); CHLORIDE 125 mmol/L (98-107); CO2 32 mmol/L (21-32); CREATININE 2.2 mg/dL (0.6-1.0); DIRECT BILIRUBIN < 0.1 mg/dL (<0.1-0.3); GLUCOSE 153 mg/dL (74-106); LIPASE 67 U/L (73-393); PHOSPHORUS 3.3 mg/dL (2.5-4.9); SGOT 120 U/L (15-37); SGPT 65 U/L (30-65); TOTAL BILIRUBIN < 0.1 mg/dL (<0.1-1.0); TOTAL PROTEIN 5.6 g/dL (6.4-8.2)
[2018-10-22 01:18] LABS: ANION GAP 5 mmol/L (7-16); POTASSIUM 4.6 mmol/L (3.5-5.1)
[2018-10-22 01:19] LABS: SODIUM 162 mmol/L (136-145)
[2018-10-22 01:33] LABS: ABSOLUTE NEUTROPHILS 24.5 thou/uL (1.4-8.2); ATYPICAL MONONUCLEARS 1 %; NUCLEATED RBCS 6 /100WBC
[2018-10-22 01:36] LABS: ANISOCYTOSIS 1+; HYPOCHROMASIA 2+; MICROCYTES 1+; PLATELET ESTIMATE DECREASED; POLYCHROMASIA 1+; TARGET CELLS 2+
[2018-10-22 02:10] LABS: GGTP 68 U/L (5-55)
[2018-10-22 05:51] LABS: BE(vivo) 3.5 mmol/L (-2 to +3); pH 7.294 (7.360-7.450); sO2 83.5 % (92.0-98.0)
[2018-10-22 05:52] LABS: PCO2 65.4 mmHg (35.0-45.0); PO2 54.1 mmHg (80.0-100.0)
--- NOTE | 2018-10-22 06:37 | NUR ---
PT INTUBATED ON VENT. UNAROUSABLE/UNRESPONSIVE. NO APPARENT PAIN. CRITICAL ABG COMMUNICATED TO DR. GALLAGHER. ON LEVOPHED FOR BP SUPPORT, CURRENTLY ONGOING AT 4.9 MCGS/MIN. RT ISAC IN PLACE. CVP NOTED. NG TUBE AND KIRK IN PLACE. OUTPUT NOTED HOURLY. [facility] RN MALLIKA ASSISTED WITH CARE DURING THE NIGHT. PT MOTHER AND FAMILY VISITED DURING THE NIGHT. FREQUENT TURNS AND ORAL CARE. WILL CONTINUE TO MONITOR
[2018-10-22 07:50] LABS: HEMATOCRIT 27.2 % (37.0-47.0); HEMOGLOBIN 8.3 gm/dL (12.0-15.0); MCH 21.9 pg (26.0-34.0); MCHC 30.6 g/dL (28.0-37.0); MCV 71.4 fL (80.0-100.0); PLATELET COUNT 110 thou/uL (150-400); RBC 3.82 mil/uL (4.20-5.00); RDW 16.3 % (10.5-14.5); WBC 26.2 thou/uL (4.0-11.0)
[2018-10-22 07:52] LABS: APTT 39.1 Seconds (24.5-32.8); FIBRINOGEN 591.8 mg/dL (210-360); INR 1.3; PROTIME 13.7 Seconds (9.3-11.4)
[2018-10-22 07:56] LABS: ALBUMIN 1.5 g/dL (3.4-5.0); ANION GAP 7 mmol/L (7-16); BUN 50 mg/dL (7-18); CALCIUM 8.3 mg/dL (8.5-10.1); CHLORIDE 124 mmol/L (98-107); CO2 32 mmol/L (21-32); CREATININE 2.3 mg/dL (0.6-1.0); DIRECT BILIRUBIN < 0.1 mg/dL (<0.1-0.3); GGTP 68 U/L (5-55); GLUCOSE 154 mg/dL (74-106); LIPASE 72 U/L (73-393); MAGNESIUM 3.1 mg/dL (1.8-2.4); PHOSPHORUS 3.5 mg/dL (2.5-4.9); POTASSIUM 4.6 mmol/L (3.5-5.1); SGOT 128 U/L (15-37); SGPT 66 U/L (30-65); TOTAL BILIRUBIN 0.2 mg/dL (<0.1-1.0); TOTAL PROTEIN 5.9 g/dL (6.4-8.2); TROPONIN-I 0.48 ng/mL (<0.06)
[2018-10-22 07:58] LABS: SODIUM 163 mmol/L (136-145)
[2018-10-22 08:06] LABS: AMYLASE 26 U/L (25-115)
[2018-10-22 08:32] LABS: ATYPICAL MONONUCLEARS 1 %; METAMYELOCYTES 6 %; MYELOCYTES 1 %; NUCLEATED RBCS 1 /100WBC
[2018-10-22 08:33] LABS: TOXIC GRANULATION 2+
[2018-10-22 08:34] LABS: ANISOCYTOSIS 1+; HYPOCHROMASIA 2+; MICROCYTES 1+
[2018-10-22 13:45] LABS: RBC 3.86 mil/uL (4.20-5.00)
[2018-10-22 13:55] LABS: HEMATOCRIT 28.1 % (37.0-47.0); HEMOGLOBIN 8.3 gm/dL (12.0-15.0); MCH 21.6 pg (26.0-34.0); MCHC 29.7 g/dL (28.0-37.0); MCV 72.7 fL (80.0-100.0); RDW 16.5 % (10.5-14.5); WBC 26.6 thou/uL (4.0-11.0)
[2018-10-22 14:36] LABS: APTT 39.2 Seconds (24.5-32.8); FIBRINOGEN 609.1 mg/dL (210-360)
[2018-10-22 14:44] LABS: ALBUMIN 1.3 g/dL (3.4-5.0); CALCIUM 8.2 mg/dL (8.5-10.1); CREATININE 2.1 mg/dL (0.6-1.0); MAGNESIUM 2.9 mg/dL (1.8-2.4); POTASSIUM 5.1 mmol/L (3.5-5.1); TOTAL BILIRUBIN 0.1 mg/dL (<0.1-1.0); TOTAL PROTEIN 5.6 g/dL (6.4-8.2)
[2018-10-22 15:08] LABS: ABSOLUTE NEUTROPHILS 21.8 thou/uL (1.4-8.2); METAMYELOCYTES 10 %; MYELOCYTES 4 %; PROMYELOCYTES 1 %
[2018-10-22 15:09] LABS: ANISOCYTOSIS 1+; MICROCYTES 2+; PLATELET COUNT 114 thou/uL (150-400); PLATELET ESTIMATE NORMAL
[2018-10-22 15:40] LABS: HEMATOCRIT 26.4 % (37.0-47.0); HEMOGLOBIN 7.9 gm/dL (12.0-15.0); MCH 21.7 pg (26.0-34.0); MCHC 29.9 g/dL (28.0-37.0); MCV 72.4 fL (80.0-100.0); PLATELET COUNT 109 thou/uL (150-400); RBC 3.64 mil/uL (4.20-5.00); RDW 16.3 % (10.5-14.5); WBC 23.9 thou/uL (4.0-11.0)
[2018-10-22 16:01] LABS: GLYCOHEMOGLOBIN (HGB A1C) 5.7 % (4.8-5.6)
[2018-10-22 16:17] LABS: ABSOLUTE NEUTROPHILS 19.8 thou/uL (1.4-8.2); HYPOCHROMASIA 2+; METAMYELOCYTES 9 %; NUCLEATED RBCS 1 /100WBC; PLATELET ESTIMATE NORMAL
[2018-10-22 16:18] LABS: ANISOCYTOSIS 1+; MICROCYTES 2+
[2018-10-22 18:00] LABS: BE(vivo) 0.2 mmol/L (-2 to +3); HCO3 27.3 mmol/L (22.0-26.0); PCO2 58.7 mmHg (35.0-45.0); PO2 51.3 mmHg (80.0-100.0); pH 7.285 (7.360-7.450); sO2 81.2 % (92.0-98.0)
[2018-10-22 18:19] LABS: APTT 45.4 Seconds (24.5-32.8); HEMATOCRIT 32.6 % (37.0-47.0); HEMOGLOBIN 9.8 gm/dL (12.0-15.0); INR 1.3; MCH 21.7 pg (26.0-34.0); MCHC 30.1 g/dL (28.0-37.0); MCV 72.2 fL (80.0-100.0); PLATELET COUNT 97 thou/uL (150-400); PROTIME 13.4 Seconds (9.3-11.4); RBC 4.51 mil/uL (4.20-5.00); RDW 16.3 % (10.5-14.5); WBC 16.4 thou/uL (4.0-11.0)
[2018-10-22 18:24] LABS: FIBRINOGEN > 900 mg/dL (210-360)
[2018-10-22 18:25] LABS: ALBUMIN 1.2 g/dL (3.4-5.0); AMYLASE 24 U/L (25-115); ANION GAP 2 mmol/L (7-16); BUN 52 mg/dL (7-18); CALCIUM 7.9 mg/dL (8.5-10.1); CHLORIDE 120 mmol/L (98-107); CO2 34 mmol/L (21-32); DIRECT BILIRUBIN < 0.1 mg/dL (<0.1-0.3); GLUCOSE 182 mg/dL (74-106); LIPASE 49 U/L (73-393); MAGNESIUM 2.8 mg/dL (1.8-2.4); PHOSPHORUS 4.4 mg/dL (2.5-4.9); POTASSIUM 5.3 mmol/L (3.5-5.1); SGOT 236 U/L (15-37); SGPT 99 U/L (30-65); SODIUM 156 mmol/L (136-145); TOTAL BILIRUBIN < 0.1 mg/dL (<0.1-1.0); TOTAL PROTEIN 5.5 g/dL (6.4-8.2)
[2018-10-22 18:38] LABS: GGTP 54 U/L (5-55)
--- NOTE | 2018-10-22 18:41 | NUR ---
ASSUMED CARE @ 0700 10/22/18, PT ASSESSMENTS AND VSS COMPLETE PER ICU PROTOCOL. PT HAS GCS OF 3, PT UNRESPONSIVE, [facility] FOLLOWING CASE. CEREBRAL FLOW TEST @ NUCLEAR MED AND BRAIN TEST EVALUATION PERFORMED TODAY BY DR PARKER, PLEASE SEE CEREBRAL FLOW IMPRESSION AND DR PARKER'S NOTED FOR SPECIFICS. PT ST ON THE MONITOR, PT ON LEVO GTT FOR BP MANAGEMENT, EDEMA PRESENT SEE PROCESS INTERVENTIONS FOR SPECIFICS. PT ON THE VENT, SEE PROCESS INTERVENTIONS FOR VENT SETTINGS. DR GALLAGHER ON THE CASE, HE VERIFIES THAT THERE IS NO NEED FOR AN APNEA TEST DUE TO THE RESULTS FROM HER CEREBRAL FLOW TEST, DR PARKER INFORMED OF THIS. OF 1807, PT IS PRONOUNCED AND OFFICAILY HANDED OVER TO [facility]. OG IN PLACE CLAMPED, Q4H 200 FLUSHES AT THIS TIME. KIRK IN PLACE, GOP NOTED.
[2018-10-22 18:53] LABS: ABSOLUTE NEUTROPHILS 15.3 thou/uL (1.4-8.2); METAMYELOCYTES 2 %
[2018-10-22 18:54] LABS: ANISOCYTOSIS 2+; HYPOCHROMASIA 2+; MICROCYTES 1+; POLYCHROMASIA OCCASIONAL; TARGET CELLS 1+
[2018-10-23 02:10] LABS: BE(vivo) 2.4 mmol/L (-2 to +3); HCO3 31.3 mmol/L (22.0-26.0); PCO2 78.6 mmHg (35.0-45.0); PO2 48.4 mmHg (80.0-100.0); sO2 74.1 % (92.0-98.0)
[2018-10-23 02:11] LABS: pH 7.218 (7.360-7.450)
[2018-10-24 00:08] LABS: ADENOVIRUS Negative (Negative); INFLUENZA A Negative (Negative); INFLUENZA B Negative (Negative); METAPNEUMOVIRUS Negative (Negative); PARAINFLUENZA 1 Negative (Negative); PARAINFLUENZA 2 Negative (Negative); PARAINFLUENZA 3 Negative (Negative); RHINOVIRUS Negative (Negative); RSV A Negative (Negative); RSV B Negative (Negative)
== END 2018-10-22 18:08 | DRG 870 ==
LOC: ER 15:30 → ICU 16:28 → EROBS 16:28 → ICU 18:45
PROVIDERS: Emergency Medicine; Internal Medicine Nephrology; Internal Medicine Pulmonary Disease; Nurse Practitioner Family; Specialist; ADMIT Hospitalist
PROC: 5A1955Z Respiratory Ventilation, Greater than 96 Consecutive Hours (ICD-10-PCS; principal; 2018-10-15)
PROC: 5A12012 Performance of Cardiac Output, Single, Manual (ICD-10-PCS; principal; 2018-10-15)
PROC: 0BH17EZ Insertion of Endotracheal Airway into Trachea, Via Natural or Artificial Opening (ICD-10-PCS; principal; 2018-10-15)
DX: A41.9 Sepsis, unspecified organism (principal); J96.01 Acute respiratory failure with hypoxia; J96.02 Acute respiratory failure with hypercapnia; K72.00 Acute and subacute hepatic failure without coma; J18.9 Pneumonia, unspecified organism; J45.902 Unspecified asthma with status asthmaticus; E87.4 Mixed disorder of acid-base balance; G93.40 Encephalopathy, unspecified; N17.9 Acute kidney failure, unspecified; I42.9 Cardiomyopathy, unspecified; J98.11 Atelectasis; G93.1 Anoxic brain damage, not elsewhere classified; E87.0 Hyperosmolality and hypernatremia; Z66 Do not resuscitate; N18.9 Chronic kidney disease, unspecified; E83.51 Hypocalcemia; F17.210 Nicotine dependence, cigarettes, uncomplicated; E87.6 Hypokalemia; I46.9 Cardiac arrest, cause unspecified; R73.9 Hyperglycemia, unspecified; D64.9 Anemia, unspecified; D69.6 Thrombocytopenia, unspecified; E16.2 Hypoglycemia, unspecified; F15.10 Other stimulant abuse, uncomplicated; F14.10 Cocaine abuse, uncomplicated; Z71.51 Drug abuse counseling and surveillance of drug abuser; Z88.0 Allergy status to penicillin
CPT/HCPCS: 10078; 85026